=== PATIENT | male | born 1935 | race Caucasian/White ===

== ENCOUNTER 2017-08-15 09:27 | Day surgery (SDC) | payer MEDICARE, OTHER ==
[~2017-08-15 09:27] MED LIST: ACETAMINOPHEN 1,000 MG/100 ML BTL IV ONE; CEFAZOLIN 2 Gram 2 GM/50 ML BAG IVPB ONE
[2017-08-15] MEDS ORDERED: DEXAMETHASONE 4 MG/ML 1ML VIAL IVP ONE (09:28)
[2017-08-15] MEDS ORDERED: BUPIVACAINE LIPOSOME/PF 133MG/10ML VIAL IV ONE (09:28)
[2017-08-15] MEDS ORDERED: EPINEPHRINE 1 MG/ML AMPUL SQ ONE (09:28)
[2017-08-15] MEDS ORDERED: MIDAZOLAM HCL 2MG/2ML VIAL IV ONE (09:28)
[2017-08-15] MEDS ORDERED: LIDOCAINE 2% MDV (20MG/ML) 20ML VIAL IV ONE (09:28)
[2017-08-15] MEDS ORDERED: DESFLURANE 240 ML BTL INH ONE (09:28)
[2017-08-15] MEDS ORDERED: FENTANYL PF 100MCG/2ML VIAL IV ONE (09:28)
[2017-08-15] MEDS ORDERED: PROPOFOL 10 MG/ML VIAL IV ONE (09:28)
[2017-08-15] MEDS ORDERED: BUPIVACAINE 0.5% (5MG/ML) PF 30ML VIAL IVP ONE (09:28)
[2017-08-15 09:35] LABS: BASO % 0.5 % (0-6); EOS % 2.3 % (0-6); GRAN % 57.3 % (47-80); HEMOGLOBIN 14.5 gm/dl (14.0-18.0); LYMPH % 29.9 % (16-45); MEAN CELL VOLUME 89.2 fl (81-97); MEAN CORPUSCULAR HEMOGLOBIN 29.4 pg (27-33); MEAN PLATELET VOLUME 9.8 fl (7.4-10.4); PLATELET COUNT 213 K/uL (130-400); RED BLOOD COUNT 4.93 M/uL (4.40-5.70); RED CELL DISTRIBUTION WIDTH 13.2 % (11.5-14.5); WHITE BLOOD COUNT W/O DIFF 6.5 K/uL (4.2-12.2)
[2017-08-15 09:46] LABS: BLOOD UREA NITROGEN 19 mg/dL (8-23); EST GLOMERULAR FILTRATION RATE > 60 mL/min; GLUCOSE,RANDOM 179 mg/dL (74-109)
--- NOTE | 2017-08-16 15:20 | Operative Note ---
DATE OF SURGERY: 08/15/2017 Surgeon: Dakotah Vo DO PREOPERATIVE DIAGNOSES: 1. Tear of the left rotator cuff. 2. Impingement syndrome, left shoulder. POSTOPERATIVE DIAGNOSES: 1. Tear of the left rotator cuff. 2. Tear/medial dislocation of the left biceps tendon. 3. Impingement syndrome, left shoulder. OPERATION: 1. Arthroscopic repair of left rotator cuff. 2. Arthroscopic tenotomy biceps tendon, left shoulder. 3. Arthroscopic subacromial decompression and acromioplasty, left shoulder. DESCRIPTION OF PROCEDURE: This 82-year-old male was taken to the operating room and placed in the supine position on the operating room table. General anesthesia was induced and the patient was then placed in the beach chair position with all eleanor prominences well padded and head well secured. The left shoulder was prepped with Hibiclens and draped in the usual sterile fashion. A posterior portal was established in the glenohumeral joint and initial evaluation of the joint demonstrated a dislocation and tearing of the biceps tendon. Marked fraying of the tendon was present as it proceeded distally down into the arm. The tendon had very poor quality of tendon in that location representing less than 25% of the tendon being connected. Biceps tenotomy was performed and allowed the tendon to retract slightly. The scope was then placed in the subacromial space and thorough subacromial decompression and acromioplasty was performed. The tuberosity was debrided to prepare for tendon repair to the footprint. The tendon was markedly frayed and in multiple planes and this was thoroughly debrided and the basket forceps was used to cut hanging fragments of the torn cuff. Once this had been debrided back to what I felt was reasonably good quality tendon, we began repairing the tendon by using the modifications of the Arthrex Speedbridge technique. This was done by placing two 5.5 SwiveLock anchors adjacent to the articular cartilage, one at the anterior and one at the posterior margins of the tear. A FiberTape and TigerTape had been passed through them, respectively. The sutures were then passed through the rotator cuff. An additional #2 FiberWire suture was placed in a horizontal mattress fashion in between the FiberTape and TigerTape for added support. A single limb of each one of these sutures then was grasped and placed through a third SwiveLock anchor which was placed inferior to the anterior anchor. Traction placed on the sutures and the anchor impaled. The remaining 3 tails of suture were then grasped and placed through a fourth SwiveLock anchor which was placed inferior to the posterior anchor. Again traction was placed on the sutures to bring the cuff down to its anatomic footprint. The anchor was inserted. Subsequently, the sutures were cut. The repair was seen to be satisfactory. The wound was irrigated and suctioned. The wounds closed with 4-0 nylon suture. Sterile dressings with an UltraSling were applied. The patient was taken to the recovery room in satisfactory condition. GROSS PATHOLOGY: This patient demonstrated a markedly torn and dislocated biceps tendon. In addition, marked tearing of the supraspinatus tendon was present in multiple tissue planes and marked fraying of the free edge was noted. CC: DO DANIS Anderson
== END 2017-08-15 13:30 | disposition home or self-care (01) ==
LOC: SUR 09:27
PROVIDERS: ATTEND Orthopaedic Surgery
DX: M75.102 Unspecified rotator cuff tear or rupture of left shoulder, not specified as traumatic (principal); S46.212A Strain of muscle, fascia and tendon of other parts of biceps, left arm, initial encounter; M75.42 Impingement syndrome of left shoulder; E11.9 Type 2 diabetes mellitus without complications; Z79.84 Long term (current) use of oral hypoglycemic drugs; I10 Essential (primary) hypertension
CPT/HCPCS: 29827; 29828; 29826; 01630; 85025; 80048; J3010; J0690; C9290; J0171

== ENCOUNTER 2018-04-22 11:36 | Emergency (ER) | payer MEDICARE, OTHER ==
[2018-04-22] MEDS ORDERED: LIDOCAINE 1% MPF 100MG/10ML STERILE-PAK AMPULE IV ONE (13:18)
[2018-04-22] MEDS ORDERED: LIDOCAINE 1% MDV (10MG/ML) 20ML VIAL SQ ONE (13:21)
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
== END 2018-04-22 15:55 | disposition home or self-care (01) ==
LOC: ER 11:36
DX: S81.812A Laceration without foreign body, left lower leg, initial encounter (principal); S51.811A Laceration without foreign body of right forearm, initial encounter; S60.221A Contusion of right hand, initial encounter; S60.211A Contusion of right wrist, initial encounter; M54.2 Cervicalgia; E11.9 Type 2 diabetes mellitus without complications; Z79.84 Long term (current) use of oral hypoglycemic drugs; I10 Essential (primary) hypertension; Z87.891 Personal history of nicotine dependence; V43.52XA Car driver injured in collision with other type car in traffic accident, initial encounter
CPT/HCPCS: 12032; 71046; 72050; 99284

== ENCOUNTER 2018-05-01 08:49 | Day surgery (SDC) | payer MEDICARE, OTHER ==
[2018-05-01] MEDS ORDERED: NEOMYCIN/POLY./DEXAM OPTH OINT OPTH ONE (08:50)
[2018-05-01] MEDS ORDERED: EPINEPHRINE 1 MG/ML AMPUL SQ ONE (08:50)
[2018-05-01] MEDS ORDERED: LIDOCAINE 2% MDV (20MG/ML) 20ML VIAL IV ONE ×2 (08:50)
[2018-05-01] MEDS ORDERED: PROPOFOL 10 MG/ML VIAL IV ONE (08:50)
[2018-05-01] MEDS ORDERED: TETRACAINE HCL 0.5% 15 ML OPTH BTL OPTH ONE (08:50)
[2018-05-01] MEDS ORDERED: CIPROFLOXACIN HCL 0.0015 GM, PHENYLEPHRINE HCL 0.05 GM, KETOROLAC TROMETHAMINE 0.000625 GM MC ONE ×5 (14:45)
--- NOTE | 2018-05-02 17:48 | Operative Note ---
DATE OF PROCEDURE: 05/02/18 PREOPERATIVE DIAGNOSIS: NUCLEAR SCLEROTIC CATARACT, RIGHT EYE. POSTOPERATIVE DIAGNOSIS: NUCLEAR SCLEROTIC CATARACT, RIGHT EYE. PROCEDURE: PHACOEMULSIFICATION OF CATARACTOUS LENS WITH IMPLANTATION OF INTRA- OCULAR LENS. SURGEON: AMAYA GIBSON M.D. LENS IMPLANT USED: GIL AND GIL MODEL PCB00 +25.0 DIOPTERS. COMPLICATIONS: NONE. PROCEDURE: The patient was given reference carin at the 0 and 180-degree position prior to being blocked in the usual fashion with the retrobulbar block in the right eye. The patient was then prepped and draped in the usual fashion and a lid speculum placed in the right eye. At this point, the corneal marker was used to create markings on the cornea at 168 degrees after which, a scleral tunnel wound was placed at the temporal limbus of 2.4 mm cord length. A paracentesis was placed 2 hours to the left and right of this and the chamber deepened with Viscoelastic. The keratome was used to enter through the scleral tunnel wound after which the continuous circular capsulorrhexis was accomplished without difficulty. Hydrodissection of the lens was performed and the nucleus of the lens was removed in a divide and conquer fashion. The residual cortical material was irrigated and aspirated from the eye and the bag and chamber were then reinflated with Viscoelastic. The intraocular lens was placed into the capsular bag and oriented to a position 10 degrees shorter the intended final access. The residual Viscoelastic was removed from the eye and the eye was then reinflated and the intraocular lens dialed into position at 168 degrees. The wound was noted to be water-tight to direct encounter pressure. The lid speculum was removed and the eye was patched and shielded to be re-examined later in the afternoon. [facility]BER: [id number] [facility]
== END 2018-05-01 11:33 | disposition home or self-care (01) ==
LOC: SUR 08:49
PROVIDERS: ATTEND Ophthalmology
DX: H25.11 Age-related nuclear cataract, right eye (principal); E11.9 Type 2 diabetes mellitus without complications; E78.00 Pure hypercholesterolemia, unspecified; K21.9 Gastro-esophageal reflux disease without esophagitis; I25.10 Atherosclerotic heart disease of native coronary artery without angina pectoris; Z95.811 Presence of heart assist device
CPT/HCPCS: J0171

== ENCOUNTER 2018-05-05 14:29 | Emergency (ER) | payer MEDICARE, OTHER ==
--- NOTE | 2018-05-05 15:28 | Emergency Department Record ---
History of Present Illness - General Chief Complaint: Suture removal Stated Complaint: SUTURE REMOVAL Time Seen by Provider: 05/05/18 14:40 Source: Patient Mode of arrival: Ambulatory Limitations: No limitations - History of Present Illness Initial Comments: pts here for suture removal.it has been 14days. Complaint: Suture/staple removal Onset/Timin -: Week(s) Initial Visit For: Laceration Returns Today for: Staple/stitch removal, Wound recheck Symptoms Since Prior Visit: No new symptoms Associated Symptoms: None - Related Data Allergies Allergy/AdvReac Type Severity Reaction Status Date / Time No Known Drug Allergies Allergy Verified 04/22/18 12:05 Travel Screening - Travel/Exposure Within Last 30 Days Have you traveled within the last 30 days?: No - Travel/Exposure Within Last Year Have you traveled outside the [place] in the last year?: No - Additonal Travel Details Have you been exposed to anyone with a communicable illness?: No - Travel Symptoms Symptom Screening: None Review of Systems Reviewed: No additional complaints except as noted below Constitutional: Reports: As per HPI. Denies: Chills, Fever, Malaise, Night sweats, Weakness, Weight change Eyes: Reports: As per HPI. Denies: Eye discharge, Eye pain, Photophobia, Vision change ENT: Reports: As per HPI. Denies: Congestion, Dental pain, Ear pain, Epistaxis , Hearing loss, Throat pain Respiratory: Reports: As per HPI. Denies: Cough, Dyspnea, Hemoptysis, Stridor, Wheezes Cardiovascular: Reports: As per HPI. Denies: Arrhythmia, Chest pain, Dyspnea on exertion, Edema, Murmurs, Orthopnea, Palpitations, Paroxysmal nocturnal dyspnea, Rheumatic Fever, Syncope Endocrine: Reports: As per HPI. Denies: Fatigue, Heat or cold intolerance, Polydipsia, Polyuria Gastrointestinal: Reports: As per HPI. Denies: Abdominal pain, Constipation, Diarrhea, Hematemesis, Hematochezia, Melena, Nausea, Vomiting Genitourinary: Reports: As per HPI. Denies: Dysuria, Frequency, Hematuria, Incontinence, Retention, Testicular pain, Testicular mass, Urgency Musculoskeletal: Reports: As per HPI. Denies: Arthralgia, Back pain, Gout, Joint swelling, Myalgia, Neck pain Skin: Reports: As per HPI. Denies: Bruising, Change in color, Change in hair/ nails, Lesions, Pruritus, Rash Neurological: Reports: As per HPI. Denies: Abnormal gait, Confusion, Headache, Numbness, Paresthesias, Seizure, Tingling, Tremors, Vertigo, Weakness Psychiatric: Reports: As per HPI. Denies: Anxiety, Auditory hallucinations, Depression, Homicidal thoughts, Suicidal thoughts, Visual hallucinations Hematological/Lymphatic: Reports: As per HPI. Denies: Anemia, Blood Clots, Easy bleeding, Easy bruising, Swollen glands Past Medical History - SOCIAL HISTORY Smoking Status: Former smoker Alcohol Use: None Drug Use: None - RESPIRATORY Hx Respiratory Disorders: No - CARDIOVASCULAR Hx Cardio Disorders: Yes Comment:: still works - NEURO Hx Neuro Disorders: No Comment:: forgetful - GI Hx GI Disorders: Yes Hx Reflux: Yes (occass depending on what he eats) - Hx Genitourinary Disorders: Yes Hx Bladder Problem: Yes (problems urinating after sx's sometimes has to be cathed) Hx Prostate Problems: Yes (hx prostatitis BPH) - ENDOCRINE Hx Endocrine Disorders: Yes Hx Diabetes: Yes (dx'd 10 yrs ago) Comment:: doesnt check sugar very often - MUSCULOSKELETAL Hx Musculoskeletal Disorders: Yes - PSYCH Hx Psych Problems: Yes Hx Anxiety: Yes ("short temper") - HEMATOLOGY/ONCOLOGY Hx Hematology/Oncology Disorders: Yes Hx Cancer: Yes (skin) Hx Blood Transfusions: Yes (autologus) Family Medical History Any Significant Family History?: Yes Hx Cancer: Mother, Brother/Sister Hx Diabetes: Father Hx Heart Disease: Father Physical Exam - General General Appearance: Alert, Oriented x3, Cooperative, No acute distress - Head Head exam: Normal inspection - Eye Eye exam: Normal appearance, PERRL, EOMI Pupils: Normal accommodation - ENT ENT exam: Normal exam, Mucous membranes moist, Normal external ear exam, Normal orophraynx, TM's normal bilaterally Ear exam: Normal external inspection. negative: External canal tenderness Nasal Exam: Normal inspection. negative: Discharge, Sinus tenderness Mouth exam: Normal external inspection, Tongue normal Teeth exam: Normal inspection. negative: Dental caries Throat exam: Normal inspection. negative: Tonsillar erythema, Tonsillar exudate - Neck Neck exam: Normal inspection, Full ROM. negative: Tenderness - Respiratory Respiratory exam: negative: Respiratory distress - Cardiovascular Cardiovascular Exam: Normal rhythm - GI/Abdominal GI/Abdominal exam: Soft, Normal bowel sounds. negative: Tenderness - Rectal Rectal exam: Deferred - exam: Deferred - Extremities Extremities exam: Normal inspection, Full ROM, Normal capillary refill. negative: Tenderness - Back Back exam: Reports: Normal inspection, Full ROM. Denies: Muscle spasm, Rash noted, Tenderness - Neurological Neurological exam: Alert, CN II-XII intact, Normal gait, Oriented X3 - Psychiatric Psychiatric exam: Normal affect, Normal mood - Skin Skin exam: Dry, Intact, Normal color, Warm Course Vital Signs 05/05/18 14:38 Temperature 97.7 F Pulse Rate 101 H Respiratory 20 Rate Blood Pressure 157/71 Pulse Ox 97 - Reevaluation(s) Reevaluation #1: 05/05/18 15:26 every other suture was removed. wound was slightly open so 4 sutures were left in. Disposition Disposition: Discharge Clinical Impression: Visit for suture removal Disposition: Home, Self-Care Condition: (1) Good Instructions: Stitches Removal (ED) Additional Instructions: return in 3-4 days for remainder of stitches to be removed. return sooner if worse Quality - Quality Measures Quality Measures: N/A - Blood Pressure Screening Does Patient Have Any of the Following: No Blood Pressure Classification: Hypertensive Reading Systolic Measurement: 157 Diastolic Measurement: 71 Screening for High Blood Pressure: < First Hypertensive BP, F/U Documented > [ G8950] First Hypertensive Follow-up Interventions: Follow-up with rescreen GT 1 day and LT 4 weeks.
== END 2018-05-05 15:41 | disposition home or self-care (01) ==
LOC: ER 14:29
DX: Z48.02 Encounter for removal of sutures (principal)

== ENCOUNTER 2018-05-08 11:58 | Emergency (ER) | payer SELFPAY ==
--- NOTE | 2018-05-08 12:16 | Emergency Department Record ---
History of Present Illness - General Chief Complaint: Suture removal Stated Complaint: SUTURE REMOVAL Time Seen by Provider: 05/08/18 12:15 Source: Patient Mode of arrival: Ambulatory Limitations: No limitations - History of Present Illness Initial Comments: Sutures place here. Total of 9 placed...5 removed previously. No complaints Initial Visit For: Laceration Symptoms Since Prior Visit: No new symptoms Associated Symptoms: None - Related Data Allergies Allergy/AdvReac Type Severity Reaction Status Date / Time No Known Drug Allergies Allergy Verified 05/08/18 12:10 Travel Screening - Travel/Exposure Within Last 30 Days Have you traveled within the last 30 days?: No Review of Systems Constitutional: Denies: Chills, Fever Skin: Reports: As per HPI Past Medical History - SOCIAL HISTORY Smoking Status: Former smoker Alcohol Use: None Drug Use: None - RESPIRATORY Hx Respiratory Disorders: No - CARDIOVASCULAR Hx Cardio Disorders: Yes Comment:: still works - NEURO Hx Neuro Disorders: No Comment:: forgetful - GI Hx GI Disorders: Yes Hx Reflux: Yes (occass depending on what he eats) - Hx Genitourinary Disorders: Yes Hx Bladder Problem: Yes (problems urinating after sx's sometimes has to be cathed) Hx Prostate Problems: Yes (hx prostatitis BPH) - ENDOCRINE Hx Endocrine Disorders: Yes Hx Diabetes: Yes (dx'd 10 yrs ago) Comment:: doesnt check sugar very often - MUSCULOSKELETAL Hx Musculoskeletal Disorders: Yes - PSYCH Hx Psych Problems: Yes Hx Anxiety: Yes ("short temper") - HEMATOLOGY/ONCOLOGY Hx Hematology/Oncology Disorders: Yes Hx Cancer: Yes (skin) Hx Blood Transfusions: Yes (autologus) Family Medical History Any Significant Family History?: Yes Hx Cancer: Mother, Brother/Sister Hx Diabetes: Father Hx Heart Disease: Father Physical Exam - General General Appearance: Alert, Oriented x3, Cooperative, No acute distress - Eye Eye exam: Normal appearance - Extremities Extremities exam: Other (Left anterior lower leg with healing wound without signs of infection. There is some dehisence of the original wound healing by secondary intention. [address] removed without issue. Small amount of old blood clot expressed. Dressing applied) Course Vital Signs 05/08/18 12:06 Temperature 97.4 F L Pulse Rate 87 Respiratory 18 Rate Blood Pressure 153/86 Pulse Ox 100 - Reevaluation(s) Reevaluation #1: 05/08/18 12:20 4 sutures removed without incident. Old blood clotted blood expressed. dressing applied. Disposition Disposition: Discharge Clinical Impression: Encounter for removal of sutures Disposition: Home, Self-Care Condition: (1) Good Instructions: Stitches Removal (ED) Forms: Patient Portal Access Time of Disposition: 12:16 Quality - Quality Measures Quality Measures: N/A - Blood Pressure Screening Does Patient Have Any of the Following: No Blood Pressure Classification: Pre-Hypertensive BP Reading Systolic Measurement: 153 Diastolic Measurement: 86 Screening for High Blood Pressure: < Pre-Hypertensive BP, F/U Documented > [ [id number]] Pre-Hypertensive Follow-up Interventions: Follow-up with rescreen every year.
== END 2018-05-08 12:35 | disposition home or self-care (01) ==
LOC: ER 11:58
DX: Z48.02 Encounter for removal of sutures (principal)

== ENCOUNTER 2018-05-15 09:16 | Day surgery (SDC) | payer MEDICARE, OTHER ==
[2018-05-15] MEDS ORDERED: LIDOCAINE 2% MDV (20MG/ML) 20ML VIAL IV ONE ×2 (09:17)
[2018-05-15] MEDS ORDERED: LIDOCAINE 1% MPF 100MG/10ML STERILE-PAK AMPULE IV ONE (09:17)
[2018-05-15] MEDS ORDERED: NEOMYCIN/POLY./DEXAM OPTH OINT OPTH ONE (09:17)
[2018-05-15] MEDS ORDERED: PROPOFOL 10 MG/ML VIAL IV ONE (09:17)
[2018-05-15] MEDS ORDERED: TETRACAINE HCL 0.5% 15 ML OPTH BTL OPTH ONE (09:17)
[2018-05-15] MEDS ORDERED: EPINEPHRINE 1 MG/ML AMPUL SQ ONE (09:17)
[2018-05-15] MEDS ORDERED: CIPROFLOXACIN HCL 0.0015 GM, PHENYLEPHRINE HCL 0.05 GM, KETOROLAC TROMETHAMINE 0.000625 GM MC ONE ×5 (13:45)
--- NOTE | 2018-05-17 06:50 | Operative Note ---
DATE OF PROCEDURE: 03/14/19 PREOPERATIVE DIAGNOSIS: NUCLEAR SCLEROTIC CATARACT, LEFT EYE. POSTOPERATIVE DIAGNOSIS: NUCLEAR SCLEROTIC CATARACT, LEFT EYE. PROCEDURE: PHACOEMULSIFICATION OF CATARACTOUS LENS WITH IMPLANTATION OF INTRA- OCULAR LENS. SURGEON: AMAYA GIBSON M.D. LENS IMPLANT USED: GIL AND GIL MODEL PCB00 +24.0 DIOPTERS. COMPLICATIONS: NONE. PROCEDURE: The patient was given reference carin at the 0 and 180-degree position prior to being blocked in the usual fashion with the retrobulbar block in the left eye. The patient was then prepped and draped in the usual fashion and a lid speculum placed in the left eye. At this point, the corneal marker was used to create markings on the cornea at 168 degrees after which, a scleral tunnel wound was placed at the temporal limbus of 2.4 mm cord length. A paracentesis was placed 2 hours to the left and right of this and the chamber deepened with Viscoelastic. The keratome was used to enter through the scleral tunnel wound after which the continuous circular capsulorrhexis was accomplished without difficulty. Hydrodissection of the lens was performed and the nucleus of the lens was removed in a divide and conquer fashion. The residual cortical material was irrigated and aspirated from the eye and the bag and chamber were then reinflated with Viscoelastic. The intraocular lens was placed into the capsular bag and oriented to a position 10 degrees shorter the intended final access. The residual Viscoelastic was removed from the eye and the eye was then reinflated and the intraocular lens dialed into position at 168 degrees. The wound was noted to be water-tight to direct encounter pressure. The lid speculum was removed and the eye was patched and shielded to be re-examined later in the afternoon. JOB NUMBER: [id number] MTDD
== END 2018-05-15 11:25 | disposition home or self-care (01) ==
LOC: SUR 09:16
PROVIDERS: ATTEND Ophthalmology
DX: H25.12 Age-related nuclear cataract, left eye (principal); E11.9 Type 2 diabetes mellitus without complications; K21.9 Gastro-esophageal reflux disease without esophagitis; N40.0 Benign prostatic hyperplasia without lower urinary tract symptoms; E78.00 Pure hypercholesterolemia, unspecified; I25.10 Atherosclerotic heart disease of native coronary artery without angina pectoris
CPT/HCPCS: J0171; J3490